=== PATIENT | male | born 1930 | race Caucasian/White ===

== ENCOUNTER 2018-01-13 11:43 | Day surgery (SDC) | payer MEDICARE ==
[2018-01-11 16:39] VITALS: BMI 29.0
[2018-01-13] MEDS ORDERED: PROPOFOL 20 ML ONE ×2 (11:44→11:46)
[2018-01-13] MEDS ORDERED: MIDAZOLAM HCL 2 MG/2 ML SINGLE DOSE VIAL ONE (11:53)
[2018-01-13] MEDS ORDERED: LIDOCAINE HCL/PF 2% SDV 5ML VIAL ONE (13:07)
[2018-01-13] MEDS ORDERED: LIDOCAINE HCL 2% (20ML MULTI-DOSE VIAL) NR ONE (13:27)
[2018-01-13] MEDS ORDERED: LIDOCAINE HCL/PF 2% SDV 5ML VIAL INF ONE (13:45)
[2018-01-13] MEDS ORDERED: ONDANSETRON 4 MG/2 ML VIAL ONE (13:56)
[2018-01-13] MEDS ORDERED: DEXAMETHASONE SOD PHOSPHATE 4 MG/1 ML VIAL ONE (13:56)
[2018-01-13] MEDS ORDERED: oxyCODONE HCL 5 MG TABLET PO PRN (15:52)
[2018-01-13] MEDS ORDERED: ONDANSETRON 4 MG/2 ML VIAL IVPUSH PRN (15:52)
[2018-01-13] MEDS ORDERED: LACTATED RINGERS SOLUTION 1,000 ML IV SCH (16:00)
[2018-01-13 17:36] VITALS: BP 127/68; PULSE 78; TEMP 97.8
--- NOTE | 2018-01-14 10:11 | OP ---
DATE OF OPERATION: 01/13/2018 PREOPERATIVE DIAGNOSIS: Left carpal tunnel syndrome. POSTOPERATIVE DIAGNOSIS: Left carpal tunnel syndrome. OPERATIVE PROCEDURE: Left carpal tunnel release. ANESTHESIA: Local with sedation. COMPLICATIONS: None. ESTIMATED BLOOD LOSS: Minimal. INDICATION FOR PROCEDURE: The patient is an 87-year-old male with the above finding, indicated for operative treatment. Risks, benefits, and alternatives were discussed with the patient at length. Proper informed consent was obtained. PROCEDURE: After proper identification of the patient and the correct operative site, the patient was brought to the operating room and placed supine on the operative table. All prominences were well padded. Sedation was given by the anesthesiologist. Local anesthesia was given with 2% lidocaine. The left upper extremity was prepped and draped in the usual sterile fashion. A well-padded tourniquet was placed as well as a sterile prep. An Esmarch bandage was used to exsanguinate the left upper extremity. The tourniquet was inflated to 250 mmHg. A longitudinal incision was made in the proximal aspect of the palm. Incision was taken sharply through the skin with blunt and sharp dissection through the subcutaneous tissues. Palmar fascia was divided longitudinally. Transcarpal ligament along with the distal 4 cm of the antebrachial fascia was divided longitudinally under direct visualization with loupe magnification. This provided complete release of the median nerve at the wrist. Wound was irrigated with saline and repaired with a 5-0 nylon suture. Sterile dressings were applied. Patient was brought to the recovery room in stable condition. He tolerated the procedure well. Flor [id number]
== END 2018-01-13 15:35 | disposition home or self-care (01) ==
LOC: FASU 11:43
PROVIDERS: ATTEND Orthopaedic Surgery Hand Surgery
PROC: 01N50ZZ Release Median Nerve, Open Approach (ICD-10-PCS; principal; 2018-01-13 13:51)
DX: G56.02 Carpal tunnel syndrome, left upper limb (principal)

== ENCOUNTER 2018-12-29 08:36 | Day surgery (SDC) | payer OTHER ==
[2018-12-17 10:58] VITALS: BMI 30.4
[2018-12-29] MEDS ORDERED: MIDAZOLAM HCL 2 MG/2 ML SINGLE DOSE VIAL ONE (10:07)
[2018-12-29 11:39] VITALS: PULSE 67; TEMP 97.8
[2018-12-29 11:41] VITALS: BP 134/74
[2018-12-29] MEDS ORDERED: ACETAMINOPHEN 325 MG TABLET (FP) PO PRN (11:41)
[2018-12-29] MEDS ORDERED: oxyCODONE HCL 5 MG TABLET PO PRN (11:41)
[2018-12-29] MEDS ORDERED: ONDANSETRON 4 MG/2 ML VIAL IVPUSH PRN (11:41)
[2018-12-29] MEDS ORDERED: LACTATED RINGERS SOLUTION 1,000 ML IV SCH (11:45)
--- NOTE | 2018-12-30 14:56 | OP ---
DATE OF OPERATION: 12/29/2018 PREOPERATIVE DIAGNOSIS: Right carpal tunnel syndrome. POSTOPERATIVE DIAGNOSIS: Right carpal tunnel syndrome. OPERATIVE PROCEDURE: Right carpal tunnel release. ANESTHESIA: Local with sedation. COMPLICATIONS: None. ESTIMATED BLOOD LOSS: Minimal. INDICATION FOR PROCEDURE: The patient is an 88-year-old male with the above finding indicated for operative treatment. Risks, benefits, and alternatives were discussed with the patient at length. Proper informed consent was obtained. PROCEDURE: After proper identification of the patient and correct operative site, patient was brought to the operating room, placed supine on the table. Prominences well padded. Sedation and local anesthesia were given. Right upper extremity was prepped and draped in usual sterile fashion. Esmarch bandage used to exsanguinate the right upper extremity. Tourniquet was inflated to 250 mmHg. Longitudinal incision made in the proximal aspect of the palm. Incision was taken sharply through the skin, with blunt and sharp dissection through the subcutaneous tissues. Palmar fascia was bilaterally split. Transcarpal ligament along with the distal 4 cm of the antebrachial fascia were divided under direct visualization with loupe magnification. This provided complete release of the median nerve at the wrist. Wound was repaired with a 5-0 plain gut suture. Sterile dressings were applied. Patient was reversed from anesthesia and brought to the recovery room in stable condition. He tolerated the procedure well. AVINASH THAYER M.D. [id number]
== END 2018-12-29 11:54 | disposition home or self-care (01) ==
LOC: FASU 08:36
PROVIDERS: ATTEND Orthopaedic Surgery Hand Surgery
PROC: 01N50ZZ Release Median Nerve, Open Approach (ICD-10-PCS; principal; 2018-12-29 10:52)
DX: G56.01 Carpal tunnel syndrome, right upper limb (principal)